=== PATIENT | male | born 1955 | race Caucasian/White ===

== ENCOUNTER → 2017-08-20 | Outpatient (CLI) | payer BC | LOC: COL.RAD 08-18 07:30 | DX: I71.4 Abdominal aortic aneurysm, without rupture (principal); K80.20 Calculus of gallbladder without cholecystitis without obstruction; N20.0 Calculus of kidney | CPT/HCPCS: Q9967 ==

== ENCOUNTER → 2018-01-07 | Outpatient (CLI) | payer BC | LOC: COL.RAD 11:00 | DX: N20.0 Calculus of kidney (principal); N28.1 Cyst of kidney, acquired; N40.0 Benign prostatic hyperplasia without lower urinary tract symptoms ==

== ENCOUNTER → 2018-08-23 | Outpatient (CLI) | payer MEDICARE, BC | LOC: COL.RAD 07:17 | DX: I71.4 Abdominal aortic aneurysm, without rupture (principal) | CPT/HCPCS: Q9967 ==

== ENCOUNTER → 2019-08-09 | Outpatient (CLI) | payer MEDICARE, BC | LOC: COL.RAD 09:58 | DX: Z01.812 Encounter for preprocedural laboratory examination (principal); I71.4 Abdominal aortic aneurysm, without rupture | CPT/HCPCS: Q9967 ==

== ENCOUNTER 2020-02-18 15:34 | Emergency (ER) | payer MEDICARE, BC ==
[~2020-02-18] VITALS: Ht 188 cm; Wt 117.3 kg
[2020-02-18 15:38] VITALS: BP 146/90; TEMP 97.5
[2020-02-18 16:24] VITALS: PULSE 59
[2020-02-18] MEDS ORDERED: INDERAL 20MG20 MG PO (16:27)
== END 2020-02-18 16:24 | disposition home or self-care (01) ==
LOC: COL.ER 15:34
DX: S61.211A Laceration without foreign body of left index finger without damage to nail, initial encounter (principal); Z87.891 Personal history of nicotine dependence; W26.8XXA Contact with other sharp object(s), not elsewhere classified, initial encounter; Y92.009 Unspecified place in unspecified non-institutional (private) residence as the place of occurrence of the external cause

== ENCOUNTER → 2020-08-24 | Outpatient (CLI) | payer MEDICARE, BC ==
[~2020-08-24] MED LIST: INDERAL 20MG20 MG PO
[2020-08-24 12:41] LABS: CALCIUM 9.5 mg/dL (8.4-10.2); CREATININE, serum 0.93 (0.66-1.25); POTASSIUM 4.1 mmol/L (3.4-5.0)
== END ==
LOC: COL.RAD 12:06
PROVIDERS: Internal Medicine Cardiovascular Disease
DX: Z01.812 Encounter for preprocedural laboratory examination (principal); I71.4 Abdominal aortic aneurysm, without rupture; K76.89 Other specified diseases of liver; N20.0 Calculus of kidney; K80.21 Calculus of gallbladder without cholecystitis with obstruction; K80.20 Calculus of gallbladder without cholecystitis without obstruction
CPT/HCPCS: Q9967

== ENCOUNTER → 2021-02-04 | Outpatient (CLI) | payer MEDICARE, BC ==
[2021-02-04 10:11] LABS: CALCIUM 9.4 mg/dL (8.4-10.2); CREATININE, serum 0.88 (0.66-1.25); POTASSIUM 4.3 mmol/L (3.4-5.0)
== END ==
LOC: COL.LAB 08:27
PROVIDERS: Internal Medicine Cardiovascular Disease
DX: Z01.818 Encounter for other preprocedural examination (principal)

== ENCOUNTER → 2021-02-21 | Outpatient (CLI) | payer MEDICARE, BC ==
[2021-02-21 13:51] LABS: CALCIUM 9.6 mg/dL (8.4-10.2); CREATININE, serum 0.92 (0.66-1.25); POTASSIUM 4.5 mmol/L (3.4-5.0)
== END ==
LOC: COL.RAD 12:57
PROVIDERS: Internal Medicine Cardiovascular Disease
DX: I71.4 Abdominal aortic aneurysm, without rupture (principal); K80.20 Calculus of gallbladder without cholecystitis without obstruction; K55.1 Chronic vascular disorders of intestine
CPT/HCPCS: Q9967

== ENCOUNTER 2021-10-04 05:58 | Day surgery (SDC) | payer MEDICARE, BC ==
[~2021-10-04] VITALS: Ht 188 cm; Wt 120.4 kg
[2021-10-04 07:48] VITALS: BP 114/79; PULSE 63; TEMP 98.2
[2021-10-04 07:56] VITALS: BP 118/85; PULSE 61
[2021-10-04 08:06] VITALS: BP 110/83; PULSE 55
--- NOTE | 2021-10-04 08:12 | NUR ---
Patient doing well post endosopy, vital stable, alert/oriented, denies any N/v or discomfort, tolrating PO intake, discussed discharge instructions and answered questions, present and will be driving patient home, i will escort them out the door
[2021-10-04 17:08] VITALS: BP 115/88; PULSE 68; TEMP 97.9
[2021-10-04] MEDS ORDERED: HUMIRA(CF)40 MG/0.4 SQ (17:16)
[2021-10-04] MEDS ORDERED: INDERAL 20MG20 MG PO (17:17)
[2021-10-04] MEDS ORDERED: SINGULAIR 110 MG/TAB PO (17:18)
[2021-10-04] MEDS ORDERED: PROTONIX 40MG T40 MG PO (17:18)
[2021-10-04] MEDS ORDERED: XYZAL5 MG PO (17:19)
[2021-10-04] MEDS ORDERED: NEURONTIN300 MG/CAP PO (17:19)
[2021-10-04] MEDS ORDERED: VITAMINC1000TA (17:20)
[2021-10-04] MEDS ORDERED: B COMPLEX #11 TA1 PO (17:20)
[2021-10-04] MEDS ORDERED: MASON NATURAL2000 IU PO (17:21)
[2021-10-04] MEDS ORDERED: VITAMIN E 400 U4001 PO (17:23)
[2021-10-04] MEDS ORDERED: MEGARED OMEGA-1 EAC5 PO (17:25)
[2021-10-04] MEDS ORDERED: MAGNESIUM250 M1 PO (17:28)
[2021-10-04] MEDS ORDERED: ASPIRIN 81M81 MG/TA2 PO (17:33)
== END 2021-10-04 08:13 | disposition home or self-care (01) ==
LOC: SDCO 05:58
DX: D12.5 Benign neoplasm of sigmoid colon (principal); K21.9 Gastro-esophageal reflux disease without esophagitis
CPT/HCPCS: J2704; J7030

== ENCOUNTER → 2022-01-21 | Outpatient (CLI) | payer MEDICARE, BC ==
[~2022-01-21] MED LIST changes: +ASPIRIN 81M81 MG/TA2 PO; +B COMPLEX #11 TA1 PO; +HUMIRA(CF)40 MG/0.4 SQ; +MAGNESIUM250 M1 PO; +MASON NATURAL2000 IU PO; +MEGARED OMEGA-1 EAC5 PO; +NEURONTIN300 MG/CAP PO; +PROTONIX 40MG T40 MG PO; +SINGULAIR 110 MG/TAB PO; +VITAMIN E 400 U4001 PO; +VITAMINC1000TA; +XYZAL5 MG PO
== END ==
LOC: COL.RAD 07:04
DX: I86.1 Scrotal varices (principal)

== ENCOUNTER → 2023-06-09 | Outpatient (CLI) | payer MEDICARE, BC | LOC: COL.RAD 09:10 | DX: R10.11 Right upper quadrant pain (principal) | CPT/HCPCS: Q9967 ==